=== PATIENT | female | born 1960 | race Caucasian/White ===

== ENCOUNTER 2024-08-12 10:57 | Outpatient (CLI) | payer OTHER, SELFPAY ==
--- NOTE | ~2024-08-12 | XR_ITS ---
Clinical Indication: Cough PA and lateral views of the chest: Comparison: None Findings: The lungs are clear, without evidence of focal consolidation or pleural effusion. Cardiome diastinal silhouette is within normal limits. Bones and soft tissues are unremarkable. Impression: Normal chest. Reviewed, dictated and finalized at location . Impression: Normal chest.
== END 2024-08-12 10:58 | disposition home or self-care (01) ==
PROVIDERS: PCP Family Medicine; Visit Provider Family Medicine
DX: R05.1 Acute cough (principal)
CPT/HCPCS: 71046

== ENCOUNTER 2024-10-03 10:04 | Outpatient (CLI) | payer OTHER, SELFPAY ==
--- NOTE | ~2024-10-03 | XR_ITS ---
XR wrist RT min 3V 10/03/2024 10:39 Indication: Right wrist pain Procedure: 4 views right wrist Comparison: No prior studies for comparison. Findings: There is mild polyarticular osteoarthritis. No fracture, subluxation or dislocation. There is anatomic alignment. No foreign bodies. Impression: 1: Mild polyarticular osteoarthritis. Reviewed, dictated and finalized at location A. Impression: 1: Mild polyarticular osteoarthritis.
--- NOTE | ~2024-10-03 | CT_ITS ---
EXAMINATION: CT sinus wo con DATE: 10/03/2024 10:32 INDICATION: Maxillary sinusitis TECHNIQUE: Computed tomography (CT) of the paranasal sinuses was performed without intravenous contra st. The dose-length product was 318.31 mGy-cm. Automated exposure control and iterative reconstructio n technique were employed. COMPARISON: None FINDINGS: There is no significant mucosal thickening reaction. No air-fluid is nasal septal deviation . Ostiomeatal units are patent. Mastoids are pneumatized. IMPRESSION: 1. No significant sinus disease. Reviewed, dictated and finalized at location A.
--- OUTSIDE RECORDS SUMMARY | 2024-10-03 10:59 | XMS_ITS | Clinical Summary ---
Author Organization [facility] Address [address] [place] [address] Care Team Providers Care Helper Coordinator Name Role Phone Hiral Bright MD Primary Care Provider Allergies Active Allergy Reactions Criticality Noted Date Comments Clindamycin Erythromycin Hydrocodone-Acetaminophen Medications levothyroxine (SYNTHROID, LEVOTHROID) 50 mcg tablet daily Active montelukast (SINGULAIR) 10 mg tablet Take 10 mg by mouth every morning 12 9 Active OXcarbazepine (TRILEPTAL) 300 mg tablet Take 300 mg by mouth 2 (two) times a day 9 Active CALCIUM ORAL Rx: Calcium Activ e multivit-min/iro n/folic acid/K (ADULTS MULTIVITAMIN ORAL) Rx: Multivitamin Adult - Tablet Active albuterol HFA (PROVENTIL HFA,VENTOLIN HFA,PROAIR HFA) 90 mcg/actuation inhaler INHALE 2 PUFFS BY MOUTH 4 TIMES A DAY NEEDED 9 Active METANX, ALGAL OIL, 3 mg-35 mg-2 mg -90.314 mg capsule Take 1 capsule by mouth 2 (two) times a day 9 Active budesonide (PULMICORT) 0.5 mg/2 mL nebulizer solutionIndicati ons:Chronic seasonal allergic rhinitis,Chronic ethmoidal sinusitis Take 2 mL (0.5 mg total) by nebulization daily Rinse mouth with water after use. Do not swallow. 60 mL 3 9 Active Active Problems No known active problems Surgical History Surgery Date Site/Laterality Comments CHOLECYSTECTOMY SINUS SURGERY Medical History Medical History Date Comments Neuropathy Thyroid disease Hearing loss Family History Medical History Relation Name Comments Cancer Father Diabetes Mother Heart disease Mother Hypertension Mother Stroke Mother Relation Name Status Comments Father Mother Social History Tobacco Use Types Packs/Day Years Used Date Smoking Tobacco: Never Smokeless Tobacco: Never Alcohol Use Standard Drinks/Week Comments Yes 0 (1 standard drink = 0.6 oz pur e alcohol) Rarely Personal Safety Answer Date Recorded Getting School Help Needed Not on file 08/14 Comments Unknown Sex and Gender Information Value Date Recorded Sex Assigned at Not on file 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 Gender Identity Not on file Sexual Orientation Not on file Obstetrics History Last Filed Vital Signs Vital Sign Reading Time Taken Comments Blood Pressure 116/72 01/27/2019 12:57 PM CDT Pulse 77 01/27/2019 12:57 PM CDT Temperature - - Respiratory Rate 16 01/27/2019 12:57 PM CDT Oxygen Saturation 95% 01/27/2019 12:57 PM CDT Inhaled Oxygen Concentration - - Weight 86.2 kg (190 lb) 01/27/2019 12:57 PM CDT Height 160 cm (5' 3 ) 01/27/2019 12:57 PM CDT Body Mass Index 33.66 01/27/2019 12:57 PM CDT Plan of Treatment Not on file Insurance Care Teams Helper Coordinator Relationship Specialty Start Date End Date Hiral Bright MD PCP - General 10/18/18
--- OUTSIDE RECORDS SUMMARY | 2024-10-03 10:59 | XMS_ITS | Referral Summary ---
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
== END 2024-10-03 10:05 | disposition home or self-care (01) ==
PROVIDERS: PCP Family Medicine; Visit Provider Family Medicine
DX: J32.0 Chronic maxillary sinusitis (principal); M25.531 Pain in right wrist; M79.672 Pain in left foot; M19.031 Primary osteoarthritis, right wrist
CPT/HCPCS: 70486; 73110; 73630